=== PATIENT | male | born 2000 | race Two or more races ===

== ENCOUNTER 2020-10-24 00:31 | Emergency (ER) | payer SELFPAY ==
[~2020-10-24] VITALS: Ht 172.7 cm; Wt 77.0 kg
[2020-10-24] MEDS ORDERED: OLANZAPINE 10 MG/VIAL IM ONE (01:30)
[2020-10-24 08:28] LABS: BASOPHILS % 0.3 % (0.0-2.0); EOSINOPHILS % 0.3 % (0.0-5.0); HEMATOCRIT. 47.3 % (42.0-52.0); LYMPHOCYTES % 30.2 % (20.0-50.0); MEAN CORPUSCULAR HEMOGLOBIN 30.1 pg (28.0-32.0); MEAN CORPUSCULAR VOLUME 95.2 fL (80.0-94.0); MEAN PLATELET VOLUME 8.2 fl (7.4-10.4); MONOCYTES % 11.5 % (2.0-8.0); NEUTROPHILS % 57.7 % (40.0-76.0); PLATELET 302 x1000/uL (130-400); RED BLOOD CELL COUNT 4.97 mill/uL (4.7-6.1); RED CELL DISTRIBUTION WIDTH 14.1 % (11.6-14.6)
[2020-10-24 08:32] LABS: CHLORIDE 114 mEq/L (98-107)
[2020-10-24 08:36] LABS: ETHANOL BLOOD < 10 mg/dL
[2020-10-24 21:28] LABS: *COCAINE SCREEN URINE NEGATIVE (NEGATIVE); METHADONE URINE SCREEN NEGATIVE (NEGATIVE); OPIATES URINE SCREEN NEGATIVE (NEGATIVE)
[2020-10-24 21:29] LABS: *AMPHETAMINES SCREEN URINE PRESUMTIVE POSITIVE (NEGATIVE); *BARBITURATES SCREEN URINE NEGATIVE (NEGATIVE); *BENZODIAZEPINES SCREEN URINE NEGATIVE (NEGATIVE); CANNABINOID URINE SCREEN PRESUMTIVE POSITIVE (NEGATIVE); PHENCYCLIDINE URINE SCREEN NEGATIVE (NEGATIVE)
[2020-10-25 05:30] VITALS: BP 122/72
== END 2020-10-25 06:58 | disposition home or self-care (01) ==
LOC: EDBD 00:31 → ER 00:31
DX: R41.82 Altered mental status, unspecified (principal); I49.9 Cardiac arrhythmia, unspecified; R45.1 Restlessness and agitation
CPT/HCPCS: 36415; 80053; 80305; 80307; 80320; 80329; 85025; 93005; 96372; 99285; J3490; Z7610; G0480

== ENCOUNTER 2020-12-13 22:52 | Emergency (ER) | payer MEDICAID, OTHER ==
[~2020-12-13] VITALS: Ht 154.9 cm; Wt 73.0 kg
[2020-12-14 00:49] VITALS: BP 128/78
== END 2020-12-14 00:50 | disposition home or self-care (01) ==
LOC: ER 22:52
DX: Z00.00 Encounter for general adult medical examination without abnormal findings (principal); F20.9 Schizophrenia, unspecified; Z88.8 Allergy status to other drugs, medicaments and biological substances
CPT/HCPCS: 99281